=== PATIENT | female | born 1955 | race Caucasian/White ===

== ENCOUNTER → 2017-01-06 | Outpatient (CLI) | payer BC, OTHER ==
[~2017-01-06] MED LIST: ALBU8.5H5 IH; BUDE6.9H IH; CALC-25 PO; GUAI-485 PO; HYDR200T28 PO; MOME17SP7 NS
== END ==
LOC: WC.BC 12:50
DX: Z12.31 Encounter for screening mammogram for malignant neoplasm of breast (principal)
CPT/HCPCS: 77063; G0202